=== PATIENT | female | born 1995 | race African-American/Black ===

== ENCOUNTER 2016-12-07 19:21 | Emergency (ER) | payer SELFPAY ==
[~2016-12-07] VITALS: Ht 157.5 cm; Wt 90.0 kg
[~2016-12-07 19:21] MED LIST: ALBU8I INH; BENZ100 PO; MEDR4PAK3 PO
[2016-12-07 19:24] VITALS: BP 145/82; PULSE 81; RESP 16; TEMP 98.1; O2SAT 100
[2016-12-07] MEDS ORDERED: SODIUM CHLOR 0.9% 1000 ML INJ 1,000 ML IV ONE (21:36)
--- NOTE | 2016-12-07 21:43 | PD ---
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 Patient states normally she has a very regular menstrual cycle, but she started with spotting approximately 2 weeks ago , and then started with what she thought was a normal period which has since progressed to continued bleeding with passing of clots over the past 2 weeks. Patient states she is changing her pad now 4-5 times a day. Patient denies or chance for STD. She has no fever, chills, urinary symptoms, or other symptoms. Patient does feel somewhat weak, and has history of anemia but no history of sickle cell trait. Patient is currently going to school for nursing. She has no other significant medical history. She is . She has no known drug allergies. PFSH Past Medical History Diminished Hearing: No ?: Not : 0 Social History Alcohol Use: No Tobacco Use: No Substance Use: No Allergies-Medications (Allergen,Severity, Reaction): Coded Allergies: No Known Allergies (Unverified , 12/07/16) Reported Meds & Prescriptions Reported Meds & Active Scripts Active No Active Prescriptions or Reported Medications Review of Systems Except as stated in HPI: all other systems reviewed are Neg General / Constitutional: No: Fever Eyes: No: Visual changes HENT: No: Headaches Cardiovascular: No: Chest Pain or Discomfort Respiratory: No: Shortness of Breath Gastrointestinal: No: Nausea, Vomiting, Diarrhea, Abdominal Pain Genitourinary: Positive: Pelvic Pain (cramps.), Vaginal Bleeding (see history of present illness), No: Urgency, Frequency, Dysuria, Discharge Musculoskeletal: No: Pain Skin: No Rash Neurologic: No: Weakness Psychiatric: No: Depression Endocrine: No: Polydipsia Hematologic/Lymphatic: No: Easy Bruising Physical Exam Narrative GENERAL: Patient appears in no acute distress. SKIN: Warm and dry. Normal color. Normal turgor. HEAD: Atraumatic. Normocephalic. EYES: Pupils equal and round. No scleral icterus. No injection or drainage. ENT: No nasal bleeding or discharge. Mucous membranes pink and moist. NECK: Trachea midline. Neck is supple. CARDIOVASCULAR: Regular rate and rhythm. No murmurs gallops or rubs. RESPIRATORY: No accessory muscle use. Clear to auscultation. Breath sounds equal bilaterally. GASTROINTESTINAL: Abdomen soft, diffuse suprapubic tenderness, nondistended. Hepatic and splenic margins not palpable. No CVA tenderness. MUSCULOSKELETAL: Extremities without clubbing, cyanosis, or edema. No obvious deformities. NEUROLOGICAL: Awake and alert. No obvious cranial nerve deficits. Motor grossly within normal limits. Five out of 5 muscle strength in the arms and legs. Normal speech. PSYCHIATRIC: Appropriate mood and affect; insight and judgment normal. Data Data Last Documented VS Vital Signs Date Time Temp Pulse Resp B/P Pulse Ox O2 Delivery O2 Flow Rate FiO2 12/07/16 19:24 98.1 81 16 145/82 100 Room Air Orders Complete Blood Count With Diff (12/07/16 21:36) Comprehensive Metabolic Panel (12/07/16 21:36) Urinalysis - C+S If Indicated (12/07/16 21:36) Iv Access Insert/Monitor (12/07/16 21:36) Sodium Chloride 0.9% Flush (Ns Flush) (12/07/16 21:45) Sodium Chlor 0.9% 1000 Ml Inj (Ns 1000 M (12/07/16 21:36) Ed Urine Pregnancytest Poc (12/07/16 21:36) Urine Culture (12/07/16 22:10) Labs Laboratory Tests Test 12/07/16 12/07/16 21:45 22:10 White Blood Count 10.7 TH/MM3 Red Blood Count 5.69 MIL/MM3 Hemoglobin 11.1 GM/DL Hematocrit 34.6 % Mean Corpuscular Volume 60.7 FL Mean Corpuscular Hemoglobin 19.5 PG Mean Corpuscular Hemoglobin 32.0 % Concent Red Cell Distribution Width 16.4 % Platelet Count 337 TH/MM3 Mean Platelet Volume 7.1 FL Neutrophils (%) (Auto) 62.9 % Lymphocytes (%) (Auto) 29.3 % Monocytes (%) (Auto) 5.8 % Eosinophils (%) (Auto) 1.5 % Basophils (%) (Auto) 0.5 % Neutrophils # (Auto) 6.7 TH/MM3 Lymphocytes # (Auto) 3.1 TH/MM3 Monocytes # (Auto) 0.6 TH/MM3 Eosinophils # (Auto) 0.2 TH/MM3 Basophils # (Auto) 0.1 TH/MM3 CBC Comment AUTO DIFF Sodium Level 138 MEQ/L Potassium Level 3.9 MEQ/L Chloride Level 105 MEQ/L Carbon Dioxide Level 27.4 MEQ/L Anion Gap 6 MEQ/L Blood Urea Nitrogen 11 MG/DL Creatinine 0.77 MG/DL Estimat Glomerular Filtration 112 ML/MIN Rate Random Glucose 89 MG/DL Calcium Level 8.7 MG/DL Total Bilirubin 0.2 MG/DL Aspartate Amino Transf 14 U/L (AST/SGOT) Alanine Aminotransferase 19 U/L (ALT/SGPT) Alkaline Phosphatase 66 U/L Total Protein 7.7 GM/DL Albumin 3.5 GM/DL Urine Color YELLOW Urine Turbidity CLEAR Urine pH 6.0 Urine Specific [place] 1.024 Urine Protein TRACE mg/dL Urine Glucose (UA) NEG mg/dL Urine Ketones NEG mg/dL Urine Occult Blood LARGE Urine Nitrite NEG Urine Bilirubin NEG Urine Urobilinogen 2.0 MG/DL Urine Leukocyte Esterase SMALL Urine RBC /hpf Urine WBC 10 /hpf Urine Squamous Epithelial 2 /hpf Cells Microscopic Urinalysis Comment CULTURE INDICATED MDM Medical Decision Making Medical Screen Exam Complete: Yes Emergency Medical Condition: Yes Differential Diagnosis Irregular uterine bleeding. Pelvic cramping. Possible . Anemia. Narrative Course Patient is medically stable at time of exam. Labs ordered including CBC, CMP, urinalysis, and urine . IV access is obtained patient is given 1000 mg normal saline bolus. Patient is discussed with Dr. Hamilton. He agrees the above treatment plan. Urine is negative. CBC shows a hemoglobin of 11.1, hematocrit of 34.6 this is comparable to hemoglobin of 11.7 and 2013. Chemistry is unremarkable. Urinalysis shows possible UTI. Patient is discussed with Dr. Hamilton recommends Provera 10 mg daily for the next 7 days. Patient is also treated with Bactrim DS twice a day 3 days. Patient is to follow with the [facility] or her avionics integration engineer as discussed. Patient can return to the emergency Department with worsening symptoms if necessary. Diagnosis Primary Impression: Menorrhagia with regular cycle Additional Impression: Urinary tract infection Qualified Code: N30.01 - Acute cystitis with hematuria Referrals: Trailer Rental Clerk [facility] Patient Instructions: General Instructions, Menorrhagia (ED) Additional Instructions: Urine is negative. CBC shows a hemoglobin of 11.1, hematocrit of 34.6 this is comparable to hemoglobin of 11.7 and 2013. Chemistry is unremarkable. Urinalysis shows possible UTI. Patient is discussed with Dr. Hamilton recommends Provera 10 mg daily for the next 7 days. Patient is also treated with Bactrim DS twice a day 3 days. [facility] her avionics integration engineer as discussed. Patient can return to the emergency Department with worsening symptoms if necessary. Med/Other Pt SpecificInfo: Prescription(s) given Scripts Medroxyprogesterone Acetate (Provera)10 Mg Tab10 Mg PO DAILY #7 TAB Ref 0 Start day 21 Prov:Antonio Hamilton MD 12/07/16 Sulfamethoxazole-Trimethoprim (Bactrim DS)800-160 Mg Tab1 Tab PO BID #6 TAB Prov:Antonio Hamilton MD 12/07/16 Disposition: 01 DISCHARGE HOME Condition: Stable Marquise Love Dec 07, 2016 21:43
[2016-12-07] MEDS ORDERED: SODIUM CHLORIDE 0.9% FLUSH 10 ML FLUSH IVF PRN (21:45)
[2016-12-07 22:05] LABS: AUTOMATED NEUTROPHIL # 6.7 TH/MM3 (1.8-7.7); BASOPHIL # 0.1 TH/MM3 (0-0.2); BASOPHIL % 0.5 % (0.0-2.0); EOSINOPHIL # 0.2 TH/MM3 (0-0.4); EOSINOPHIL % 1.5 % (0.0-4.0); HEMATOCRIT 34.6 % (35.0-46.0); LYMPH % 29.3 % (9.0-44.0); LYMPHOCYTE # 3.1 TH/MM3 (1.0-4.8); MEAN CELL VOLUME 60.7 FL (80.0-100.0); MEAN CORPUSCULAR HEMOGLOBIN 19.5 PG (27.0-34.0); MONO % 5.8 % (0.0-8.0); NEUT % 62.9 % (16.0-70.0); PLATELET COUNT 337 TH/MM3 (150-450); RED BLOOD COUNT 5.69 MIL/MM3 (4.00-5.30); RED CELL DISTRIBUTION WIDTH 16.4 % (11.6-17.2); WHITE BLOOD COUNT 10.7 TH/MM3 (4.0-11.0)
[2016-12-07 22:18] LABS: HEMO FLAGS AUTO DIFF
[2016-12-07 22:21] LABS: ANION GAP 6 MEQ/L (5-15); AST (GOT) 14 U/L (15-37); BICARBONATE 27.4 MEQ/L (21.0-32.0); BLOOD UREA NITROGEN 11 MG/DL (7-18); CHLORIDE 105 MEQ/L (98-107); GLOMERULAR FILTRATION RATE 112 ML/MIN (>89); POTASSIUM 3.9 MEQ/L (3.5-5.1); SODIUM (NA) 138 MEQ/L (136-145)
[2016-12-07 22:24] LABS: ALKALINE PHOSPHATASE 66 U/L (45-117); ALT (GPT) 19 U/L (10-53); TOTAL BILIRUBIN ADULT 0.2 MG/DL (0.2-1.0)
[2016-12-07 22:31] LABS: BLOOD, URINE LARGE (NEG); COMMENT (UR) CULTURE INDICATED; CULTURE IF INDICATED CULTURE INDICATED; GLUCOSE,URINE NEG (NEG); KETONE, URINE NEG (NEG); NITRITE,URINE NEG (NEG); SQUAMOUS EPITHELIAL CELL URINE 2 /hpf (0-5); URINE COLOR YELLOW (YELLW/STRAW)
[2016-12-07] MEDS ORDERED: PROV10TA PO (22:37)
[2016-12-07] MEDS ORDERED: BACT800T5 PO (22:37)
--- NOTE | 2016-12-07 22:38 | PD ---
Physical Exam Narrative Patient was seen and examined with my dental hygiene administrative assistant. Data Data Last Documented VS Vital Signs Date Time Temp Pulse Resp B/P Pulse Ox O2 Delivery O2 Flow Rate FiO2 12/07/16 19:24 98.1 81 16 145/82 100 Room Air Orders Complete Blood Count With Diff (12/07/16 21:36) Comprehensive Metabolic Panel (12/07/16 21:36) Urinalysis - C+S If Indicated (12/07/16 21:36) Iv Access Insert/Monitor (12/07/16 21:36) Sodium Chloride 0.9% Flush (Ns Flush) (12/07/16 21:45) Sodium Chlor 0.9% 1000 Ml Inj (Ns 1000 M (12/07/16 21:36) Ed Urine Pregnancytest Poc (12/07/16 21:36) Urine Culture (12/07/16 22:10) Labs Laboratory Tests Test 12/07/16 12/07/16 21:45 22:10 White Blood Count 10.7 TH/MM3 Red Blood Count 5.69 MIL/MM3 Hemoglobin 11.1 GM/DL Hematocrit 34.6 % Mean Corpuscular Volume 60.7 FL Mean Corpuscular Hemoglobin 19.5 PG Mean Corpuscular Hemoglobin 32.0 % Concent Red Cell Distribution Width 16.4 % Platelet Count 337 TH/MM3 Mean Platelet Volume 7.1 FL Neutrophils (%) (Auto) 62.9 % Lymphocytes (%) (Auto) 29.3 % Monocytes (%) (Auto) 5.8 % Eosinophils (%) (Auto) 1.5 % Basophils (%) (Auto) 0.5 % Neutrophils # (Auto) 6.7 TH/MM3 Lymphocytes # (Auto) 3.1 TH/MM3 Monocytes # (Auto) 0.6 TH/MM3 Eosinophils # (Auto) 0.2 TH/MM3 Basophils # (Auto) 0.1 TH/MM3 CBC Comment AUTO DIFF Sodium Level 138 MEQ/L Potassium Level 3.9 MEQ/L Chloride Level 105 MEQ/L Carbon Dioxide Level 27.4 MEQ/L Anion Gap 6 MEQ/L Blood Urea Nitrogen 11 MG/DL Creatinine 0.77 MG/DL Estimat Glomerular Filtration 112 ML/MIN Rate Random Glucose 89 MG/DL Calcium Level 8.7 MG/DL Total Bilirubin 0.2 MG/DL Aspartate Amino Transf 14 U/L (AST/SGOT) Alanine Aminotransferase 19 U/L (ALT/SGPT) Alkaline Phosphatase 66 U/L Total Protein 7.7 GM/DL Albumin 3.5 GM/DL Urine Color YELLOW Urine Turbidity CLEAR Urine pH 6.0 Urine Specific [place] 1.024 Urine Protein TRACE mg/dL Urine Glucose (UA) NEG mg/dL Urine Ketones NEG mg/dL Urine Occult Blood LARGE Urine Nitrite NEG Urine Bilirubin NEG Urine Urobilinogen 2.0 MG/DL Urine Leukocyte Esterase SMALL Urine RBC /hpf Urine WBC 10 /hpf Urine Squamous Epithelial 2 /hpf Cells Microscopic Urinalysis Comment CULTURE INDICATED MDM Supervised Visit with CARLOS: Yes Diagnosis Primary Impression: Menorrhagia with regular cycle Additional Impression: Urinary tract infection Qualified Code: N30.01 - Acute cystitis with hematuria Referrals: It Systems Analyst [facility] Patient Instructions: General Instructions, Menorrhagia (ED) Additional Instruction: Urine is negative. CBC shows a hemoglobin of 11.1, hematocrit of 34.6 this is comparable to hemoglobin of 11.7 and 2013. Chemistry is unremarkable. Urinalysis shows possible UTI. Patient is discussed with Dr. Hamilton recommends Provera 10 mg daily for the next 7 days. Patient is also treated with Bactrim DS twice a day 3 days. Patient is to follow with the [facility] or her civil design technician as discussed. Patient can return to the emergency Department with worsening symptoms if necessary. Scripts Medroxyprogesterone Acetate (Provera)10 Mg Tab10 Mg PO DAILY #7 TAB Ref 0 Start day 21 Prov:Antonio Hamilton MD 12/07/16 Sulfamethoxazole-Trimethoprim (Bactrim DS)800-160 Mg Tab1 Tab PO BID #6 TAB Prov:Antonio Hamilton MD 12/07/16 Disposition: 01 DISCHARGE HOME Condition: Stable Antonio Hamilton MD Dec 07, 2016 22:38
[2016-12-07 22:55] LABS: OVALOCYTES 1+ (NORMAL); PLATELET ESTIMATE SMEAR NORMAL (NORMAL); PLATELET MORPHOLOGY NORMAL (NORMAL); SCAN/DIFF AUTO DIFF CONFIRMED
[2016-12-18] MEDS ORDERED: NORG1TAB29 PO (15:05)
== END 2016-12-07 22:55 | disposition home or self-care (01) ==
LOC: NEPE 19:21
DX: N92.0 Excessive and frequent menstruation with regular cycle (principal); N30.01 Acute cystitis with hematuria; B96.89 Other specified bacterial agents as the cause of diseases classified elsewhere
CPT/HCPCS: 80053; 81001; 84703; 85025; 87086; 96360; 99284; J7030